=== PATIENT | male | born 1990 | race Two or more races ===

== ENCOUNTER 2018-03-23 10:55 | Emergency (ER) | payer MEDICAID ==
[~2018-03-23] VITALS: Ht 180.3 cm; Wt 103.2 kg
[2018-03-23 10:57] VITALS: BP 132/83
== END 2018-03-23 12:41 | disposition home or self-care (01) ==
LOC: ED 11:31
DX: J02.9 Acute pharyngitis, unspecified (principal)
CPT/HCPCS: 71046; 87081; 87880; 99284

== ENCOUNTER 2018-08-23 19:44 | Emergency (ER) | payer MEDICAID ==
[~2018-08-23] VITALS: Ht 182.9 cm; Wt 102.7 kg
[2018-08-23 19:56] VITALS: BP 124/82
== END 2018-08-23 20:16 | disposition home or self-care (01) ==
LOC: ED 20:00
DX: K02.9 Dental caries, unspecified (principal)
CPT/HCPCS: 99283